=== PATIENT | male | born 1935 | race Caucasian/White ===

== ENCOUNTER 2021-03-25 23:22 | Emergency (ER) | payer MEDICARE, OTHER, SELFPAY ==
[2021-03-25 23:33] VITALS: BP 206/81; PULSE 78; RESP 18; TEMP 36.9; O2SAT 95; BMI 24.9
--- NOTE | 2021-03-25 23:37 | DI.RAD.S_ITS ---
PROCEDURE: XR SHOULDER RT MIN 2V INDICATIONS: Right shoulder pain for 2 days TECHNIQUE: 3 views of the shoulder were acquired. COMPARISON: None. FINDINGS: Bones: No fractures or dislocations. No suspicious bony lesions. Visualized ribs appear intact. 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 Soft tissues: Calcification noted adjacent to the lateral margin of the humeral head. IMPRESSION: 1. No fracture. No acute osseous lesion. If symptoms and/or clinical suspicion for pathology persists, further assessment with repeat radiographs (7-10 days) or advanced imaging (e.g. CT, MRI or bone scan) should be considered. 2. Osteoarthritis. 3. Rotator cuff calcific tendinitis. Dictated by: Gloria Alarcon MD, PhD on 03/26/2021 at 8:48 Approved by: Gloria Alarcon MD, PhD on 03/26/2021 at 8:50
[2021-03-26 02:00] VITALS: BP 147/67; PULSE 66; RESP 18; O2SAT 96
--- NOTE | 2021-03-26 02:11 | ED_ITS ---
HPI - Extremity Problem General Chief complaint: Extremity Problem,Nontraumatic Stated complaint: R shoulder pain X2days Time Seen by Provider: 03/26/21 02:09 Source: patient Mode of arrival: EMS Limitations: no limitations History of Present Illness HPI Narrative: This is a pleasant 85-year-old male comes to emergency department with complaint of right shoulder pain. Patient denies any trauma recent injury. He states that this evening he had noted that his shoulder was hurting and that he was having difficulty moving around in the bed. He states his contacted EMS and he was transported here for evaluation. Patient does not appreciate any chronic shoulder pain. He is unsure about his past medical history. Patient denies any prior surgeries. He does not believe he is allergic to any medications. Does state he takes medications but he does not know what they are. He states the pain seems to be localized more to the shoulder, occasionally radiates down his arm. He denies any numbness or tingling. He denies any weakness. Knee range of motion particularly external rotation seems to heat worse. Patient denies any chest pain or pressure no shortness of breath. No nausea or vomiting and no other diaphoresis. Patient states that he does live independently with his . He does seem to be fairly hard of hearing. Related Data Previous Rx's Medication Instructions Recorded hydrocodone-acetaminophen 1 tab PO Q6H PRN #10 tab 03/26/21 Allergies Allergy/AdvReac Type Severity Reaction Status Date / Time No Known Drug Allergies Allergy Verified 03/25/21 23:36 Review of Systems Review of Systems ROS Unobtainable: All systems reviewed & are unremarkable except as noted in HPI and below Patient History Social History Smoking Status: Never smoker Smoking Status: Never smoker Substance Use Type: does not use Exam Narrative Exam Narrative: GENERAL: Alert and oriented x three, elderly male in mild distress. Patient is hard hearing on exam. HEENT: Head normocephalic, atraumatic, EOMI, pupils reactive, face symmetric, moist mucous membranes NECK: Supple, full range of motion, no cervical vertebral tenderness. CARDIOVASCULAR: Regular rate and rhythm without murmurs, rubs or gallops. RESPIRATORY: Breath sounds equal bilaterally, no wheezes rales or rhonchi. ABDOMEN: Soft, nontender. Normoactive bowel sounds all 4 quadrants. No guarding or rebound, rigidity, no mass : No CVA tenderness EXTREMITIES: Normal range of motion the patient does have increased pain particularly with external rotation of the shoulder. No localized bony tenderness of the right shoulder, clavicle, scapular or upper extremity. No warmth, no erythema, no ecchymosis or deformity, no clubbing or edema. Neurovascularly intact. Patient has equal tele tech bilaterally a 5/5 muscle strength in the upper extremities and equal push and pull. Patient has 2+ radial pulses bilaterally as well as cap refill less than 2 seconds in bilateral upper extremities. NEUROLOGICAL: Cranial nerves II through XII grossly intact. Moving all extremities SKIN: Warm, dry, no petechiae, no rashes or lesions. Initial Vital Signs Initial Vital Signs: Vital Signs Temperature 98.5 F 03/25/21 23:33 Pulse Rate 78 03/25/21 23:33 Respiratory Rate 18 03/25/21 23:33 Blood Pressure 206/81 H 03/25/21 23:33 Pulse Oximetry 95 03/25/21 23:33 Course Orders Ordered: ED Orders 03/25/21 23:37 XR shoulder RT min 2V Stat Discontinued Medications Hydrocodone Bitart/Acetaminophen (Hydrocodone/Acet 5/325 Tablet) 2 tab PO NOW ONE Stop: 03/26/21 02:25 Last Admin: 03/26/21 02:28 Dose: 2 tab Documented by: SHALA Reevaluation(s) Reevaluation #1: Patient is feeling improved but still has some residual pain. He is comfortable with the plan. Knee were in contact with the patient's , she is attempting to help find patient a way to return home. Time: 05:30 Vital Signs Vital signs: Vital Signs - 8 hr 03/25/21 23:33 03/26/21 02:00 Temperature 98.5 F Pulse Rate 78 66 Respiratory Rate 18 18 Blood Pressure 206/81 H 147/67 H Pulse Oximetry 95 96 [facility] - Extremity (Nontraumatic) Imaging Data Extremity x-ray #1: Radiologist's Impression: Small amount calcification adjacent the humeral head which is likely due to calcific tendinitis of the rotator cuff. There is severe glenohumeral degenerative change with loss of joint space in osteophytes. Bones are intact. No dislocations. No rotations. No radio opaque foreign body. [facility] Narrative Medical decision making narrative: This is an 85-year-old with reproducible pain on physical exam of the right shoulder with severe glenohumeral degenerative changes with loss of joint space and osteophytes as well as calcification adjacent to the humeral head likely due to calcific tendinitis of the rotator cuff. Patient was given some pain medication here in the department. He did have improvement. Plan for short course of pain medication and follow-up with orthopedic surgery or his primary care whichever is patient's preference for re- evaluation and possible options to help with his discomfort. Discharge Plan Departure Patient Disposition: Home Clinical Impression: Calcific shoulder tendinitis Qualifiers: Laterality: right Qualified Code(s): M75.31 - Calcific tendinitis of right shoulder Degenerative arthritis Qualifiers: Osteoarthritis location: shoulder Instructions: DI for Arthritis Activity Restrictions/Additional Instructions: Follow up with your physician or orthopedic surgeon in the next week for recheck. Call for an appointment. Your x-ray imaging today shows degenerative changes consistent with arthritis in the shoulder. There is also calcification which is likely due to calcific tendinitis of the rotator cuff. These can be the cause of your pain. You may take Tylenol up to a 1000 mg every 8 hours as needed for pain. If this is an adequate you may take [place] 1-2 tablets every 6 hours instead of Tylenol. This medication can make you sleepy so do not drive, perform hazardous activities or make any major decisions while taking it. This medication also causes constipation so take a stool softener daily until stools are soft and regular while taking narcotic pain medicine. Please return for fevers, warmth, redness or increasing swelling of your shoulder, new numbness, weakness or loss of sensation of your extremity, new chest pain, shortness of breath, lightheadedness or passing out, diaphoresis, persistent vomiting or other new or concerning symptoms. Prescriptions: New hydrocodone-acetaminophen 5-325 mg tablet 1 tab PO Q6H PRN (Reason: pain) Qty: 10 RF: 0 Referrals: Vaishali Fernández PA-C [Primary Care Provider] - Jose Francisco Lewis MD [Physician] -
[2021-03-26] MEDS: HYDROCODONE/ACET 5/325 TABLET 2 TAB PO (02:28)
[2021-03-26 06:46] VITALS: BP 129/60; PULSE 80; RESP 16; O2SAT 98
== END 2021-03-26 06:48 | disposition home or self-care (01) ==
PROVIDERS: Emergency Provider Emergency Medicine; PCP Physician Assistant
DX: M75.31 Calcific tendinitis of right shoulder (principal); M19.011 Primary osteoarthritis, right shoulder
CPT/HCPCS: 73030; 99283